=== PATIENT | male | born 1980 | race Caucasian/White ===

== ENCOUNTER 2019-01-25 09:10 | Emergency (ER) | payer SELFPAY, OTHER | END 2019-01-25 10:31 | disposition home or self-care (01) | LOC: JERFT 09:10 ==

== ENCOUNTER 2020-02-29 14:51 | Emergency (ER) | payer OTHER ==
--- NOTE | 2020-02-29 15:00 | PDOC ---
Rapid Medical Evaluation Chief Complaint: Pain Time Seen by Provider: 02/29/20 14:56 Medical Evaluation: Allergies Allergy/AdvReac Type Severity Reaction Status Date / Time No Known Allergies Allergy Verified 01/25/19 09:12 02/29/20 14:58 I performed a brief in-person evaluation of this patient. 39 y/o with left shoulder injury after lifting up his daughter 4 days ago. He complaints of anterior shoulder pain. He denies past medical history or allergies to medications. Pertinent physical exam findings: + anterior L shoulder tenderness to palpation about the biceps tendon. No crepitus. Decreased ROM secondary to pain I have ordered the following:L shoulder xr Patient to proceed to ED for further evaluation. Discharge Disposition - Diagnosis Left shoulder pain - Referrals - Patient Instructions - Post Discharge Activity
[2020-02-29 15:01] VITALS: BP 136/84; PULSE 68; TEMP 98.3; BMI 30.4
[2020-02-29] MEDS ORDERED: KETOROLAC TROMETHAMINE 30 MG/1 ML VIAL IM ONE (15:45)
--- NOTE | 2020-02-29 15:54 | PDOC ---
History of Present Illness - General Chief Complaint: Pain Stated Complaint: LT ARM PAIN Time Seen by Provider: 02/29/20 14:56 History Source: Patient Exam Limitations: Clinical Condition - History of Present Illness Initial Comments: 02/29/20 15:54 Patient with no significant past medical history present with complaint of 5-day history of pain to anterior aspect of left shoulder with increased pain over lateral deltoid with elevation of left upper arm of unknown etiology. Patient report does not know how pain started and was at home not doing any strenuous activity. Denies any heavy lifting or injury to shoulder. Denies any other symptoms. Patient has not taken anything for symptoms Occurred: reports: other (5 days) Past History - Medical History Allergies/Adverse Reactions: Allergies Allergy/AdvReac Type Severity Reaction Status Date / Time No Known Allergies Allergy Verified 02/29/20 15:00 Home Medications: Ambulatory Orders Cyclobenzaprine HCl 10 mg PO Q8H PRN #14 tablet 01/25/19 Naproxen [Naprosyn -] 500 mg PO BID #30 tablet 01/25/19 Methocarbamol [Robaxin -] 500 mg PO BID #14 tablet 02/29/20 Naproxen 500 mg PO BID PRN #20 tablet 02/29/20 COPD: No - Immunization History Immunization Up to Date: No - Psycho-Social/Smoking History Smoking History: Never smoked Have you smoked in the past 12 months: No Information on smoking cessation initiated: No - Substance Abuse Hx (Audit-C & DAST Scrn) How often the patient has a drink containing alcohol: Monthly or less Number of drinks the patient has on a typical day: 1 or 2 How often the patient has six or more drinks on one occasion: Never Score: In Men: 4 or > Positive; In Women: 3 or > Positive: 1 Screen Result (Pos requires Nsg. Audit-10AR): Negative In the last yr the pt used illegal drug/Rx for NonMed reason: No Score: Yes response is considered Positive: 0 Screen Result (Positive result requires Nsg. DAST-10): Negative Review of Systems - Review of Systems Able to Perform ROS?: Yes Is the patient limited Bengali proficient: No Constitutional: No: Chills, Fever, Malaise, Weakness HEENTM: No: Symptoms Reported, See HPI, Eye Pain, Blurred Vision, Tearing, Recent change in vision, Double Vision, Cataracts, Ear Pain, Ocular Prothesis, Ear Discharge, Nose Pain, Nose Congestion, Tinnitus, Nose Bleeding, Hearing Loss, Throat Pain, Throat Swelling, Mouth Pain, Dental Problems, Difficulty Swallowing, Mouth Swelling, Other Respiratory: No: Symptoms reported, See HPI, Cough, Orthopnea, Shortness of Breath, SOB with Exertion, SOB at Rest, Stridor, Wheezing, Productive cough, Hemoptysis, Other Cardiac (ROS): No: Symptoms Reported Musculoskeletal: Yes: Symptoms Reported, See HPI, Joint Pain (Left shoulder pain), Muscle Pain (Left shoulder pain) Integumentary: No: Symptoms Reported Neurological: No: Symptoms reported, Numbness, Paresthesia All Other Systems: Reviewed and Negative *Physical Exam - Vital Signs Last Vital Signs Temp Pulse Resp BP Pulse Ox 98.3 F 68 17 136/84 100 02/29/20 14:58 02/29/20 14:58 02/29/20 14:58 02/29/20 14:58 02/29/20 14:58 - Physical Exam 02/29/20 15:56 GENERAL: Well developed, well nourished. Awake and alert. No acute distress. PULMONARY: No evidence of respiratory distress. MUSCULOSKELETAL : Mild tenderness over left AC joint and anterior and lateral deltoid muscle of left shoulder. Negative left arm drop. No visible deformity. SKIN: Warm and dry. Normal capillary refill. No bruising, ecchymosis or deformity to skin of left shoulder or upper arm NEUROLOGICAL: Alert, awake, appropriate. No motor deficits in the lower extremities. Gait is normal without ataxia. PSYCHIATRIC: Cooperative. Good eye contact. Appropriate mood and affect. General Appearance: Yes: Nourished, Appropriately Dressed. No: Apparent Distress ED Treatment Course - Medications Given in the ED: ED Medications Discontinued Medications Generic Name Dose Route Start Last Admin Trade Name Freq PRN Reason Stop Dose Admin Ketorolac Tromethamine 30 mg 02/29/20 15:45 02/29/20 15:47 Toradol Injection - IM 02/29/20 15:46 30 mg ONCE ONE Administration Medical Decision Making - Medical Decision Making 02/29/20 15:55 Patient with no significant past medical history present with complaint of 5-day history of pain to anterior aspect of left shoulder with increased pain over lateral deltoid with elevation of left upper arm of unknown etiology. Patient report does not know how pain started and was at home not doing any strenuous activity. Denies any heavy lifting or injury to shoulder. Denies any other symptoms. Patient has not taken anything for symptoms Exam significant for mild over AC joint of left shoulder and lateral deltoid muscle of left shoulder which is worse when elevation of left upper arm against resistance. Negative left arm drop. X-ray of left shoulder shows no acute fracture or abnormality. Patient symptoms likely shoulder sprain causing spasm. Toradol 30 mg IM given for pain. Patient stable for discharge on naproxen as needed for pain and Robaxin for spasm with advised to do hot compresses with orthopedics follow-up as needed Discharge - Discharge Information Problems reviewed: Yes Clinical Impression/Diagnosis: Left shoulder pain Qualifiers: Chronicity: acute Qualified Code(s): M25.512 - Pain in left shoulder Sprain of left shoulder Qualifiers: Encounter type: initial encounter Shoulder sprain type: unspecified sprain Qualified Code(s): S43.402A - Unspecified sprain of left shoulder joint, initial encounter Condition: Stable Disposition: HOME - Admission No - Additional Discharge Information Prescriptions: Naproxen 500 mg PO BID PRN #20 tablet PRN Reason: shoulder pain Methocarbamol [Robaxin -] 500 mg PO BID #14 tablet - Follow up/Referral Referrals: Sky Vigil DO [Staff Physician] - - Patient Discharge Instructions Patient Printed Discharge Instructions: DI for Shoulder Sprain Additional Instructions: X-ray of your shoulder shows no acute fracture or dislocation. Your symptoms likely from shoulder sprain causing and spasm. Take prescribed medication as needed for pain. Apply hot compresses to shoulder as needed. Follow-up referred orthopedics if no improvement in 4 days - Post Discharge Activity
== END 2020-02-29 15:56 | disposition home or self-care (01) ==
LOC: JERFT 14:51
PROC: 3E023GC Introduction of Other Therapeutic Substance into Muscle, Percutaneous Approach (ICD-10-PCS; principal; 2020-02-29)
DX: S43.402A Unspecified sprain of left shoulder joint, initial encounter (principal); Y99.9 Unspecified external cause status
CPT/HCPCS: 73030-TC-LT-FY; 99284-25

== ENCOUNTER 2020-11-04 16:49 | Emergency (ER) | payer OTHER ==
[2020-11-04 17:40] VITALS: BP 125/87; PULSE 97; TEMP 99.7; BMI 30.4
[2020-11-04] MEDS ORDERED: ACETAMINOPHEN 325 MG TABLET (FP) PO ONE (19:39)
[2020-11-04] MEDS ORDERED: ACETAMINOPHEN 325 MG TABLET (FP) ONE (19:49)
[2020-11-04 20:56] LABS: BASO % 0.2 % (0-2.0); EOS % 0.8 % (0-4.5); HEMATOCRIT 42.9 % (35.4-49); HEMOGLOBIN 14.6 GM/dL (11.7-16.9); MCHC 34.2 g/dl (32.0-35.9); MEAN CELL VOLUME 90.8 fl (80-96); MEAN PLT VOLUME 10.4 fl (7.5-11.1); MONO % 12.9 % (3.8-10.2); NEUT % 64.1 % (42.8-82.8); PLATELET COUNT 147 K/MM3 (134-434); RBC 4.72 M/mm3 (4.00-5.60); RDW 13.5 % (11.9-15.9); WHITE BLOOD COUNT 3.3 K/mm3 (4.0-10.0)
[2020-11-04 21:12] LABS: INR 1.15 (0.83-1.09); PROTHROMBIN TIME (PATIENT) 14.1 SEC (9.7-13.0)
[2020-11-04 21:14] LABS: ACTIVATED PTT 35.9 SECONDS (25.2-36.5)
[2020-11-04 21:15] LABS: CHLORIDE 104 mmol/L (98-107); POTASSIUM 3.5 mmol/L (3.5-5.1); SODIUM 136 mmol/L (136-145)
[2020-11-04 21:17] LABS: ALBUMIN 3.9 g/dl (3.4-5.0); CALCIUM 8.8 mg/dL (8.5-10.1)
[2020-11-04 21:18] LABS: ANION GAP 6 MMOL/L (8-16); BLOOD UREA NITROGEN 9.6 mg/dL (7-18); CO2 26 mmol/L (21-32); GLUCOSE,RANDOM 128 mg/dL (74-106); LIPASE 163 U/L (73-393); MAGNESIUM 2.2 mg/dL (1.8-2.4)
[2020-11-04 21:20] LABS: SGPT/ALT 44 U/L (13-61)
[2020-11-04 21:21] LABS: CREATININE 0.8 mg/dL (0.55-1.3); SGOT/AST 40 U/L (15-37)
[2020-11-04 21:22] LABS: BILIRUBIN,TOTAL 0.3 mg/dL (0.2-1); TOT PROT 7.7 g/dl (6.4-8.2)
[2020-11-04 21:23] LABS: ALK PHOS 69 U/L (45-117)
== END 2020-11-04 22:35 | disposition home or self-care (01) ==
LOC: JER 16:49
DX: R07.9 Chest pain, unspecified (principal)
CPT/HCPCS: 36415; 71046-TC-FY; 80053; 82550; 82553; 83690; 83735; 84484; 85025; 85610; 85730; 93005; 93010; 99285-25; C9803; U0003

== ENCOUNTER 2023-06-06 11:49 | Emergency (ER) | payer SELFPAY ==
[2023-06-06 11:53] VITALS: BP 116/74; PULSE 81; RESP 20; TEMP 98.6; BMI 29.0
[2023-06-06] MEDS ORDERED: KETOROLAC TROMETHAMINE 30 MG/1 ML VIAL IM ONE (12:50)
[2023-06-06] MEDS ORDERED: ACETAMINOPHEN 500 MG TABLET (FP) PO ONE (12:50)
[2023-06-06] MEDS ORDERED: LIDOCAINE 4% PATCH TP ONE ×2 (12:51→13:02)
[2023-06-06] MEDS ORDERED: KETOROLAC TROMETHAMINE 30 MG/1 ML VIAL ONE (13:02)
[2023-06-06] MEDS ORDERED: ACETAMINOPHEN 500 MG TABLET (FP) ONE (13:02)
[2023-06-06] MEDS ORDERED: oxyCODONE HCL 5 MG TABLET PO ONE (14:18)
[2023-06-06] MEDS ORDERED: oxyCODONE HCL 5 MG TABLET ONE (14:28)
[2023-06-06] MEDS ORDERED: LIDOCAINE PATCH REMOVAL MC SCH (22:00)
== END 2023-06-06 15:55 | disposition home or self-care (01) ==
LOC: JERFT 11:49
PROC: 3E0233Z Introduction of Anti-inflammatory into Muscle, Percutaneous Approach (ICD-10-PCS; principal; 2023-06-06)
DX: M54.50 Low back pain, unspecified (principal); X50.0XXA Overexertion from strenuous movement or load, initial encounter
CPT/HCPCS: 99284-25

== ENCOUNTER 2023-06-08 14:13 | Emergency (ER) | payer SELFPAY ==
[2023-06-08 14:22] VITALS: BP 129/80; PULSE 81; RESP 19; TEMP 98.2; BMI 31.0
[2023-06-08] MEDS ORDERED: LIDOCAINE 5% TOPICAL PATCH TP ONE (16:06)
[2023-06-08] MEDS ORDERED: LIDOCAINE 4% PATCH TP ONE (16:11)
[2023-06-08] MEDS ORDERED: LIDOCAINE PATCH REMOVAL MC SCH (22:00)
== END 2023-06-08 16:21 | disposition home or self-care (01) ==
LOC: JERFT 14:13
DX: M54.42 Lumbago with sciatica, left side (principal); X50.0XXA Overexertion from strenuous movement or load, initial encounter
CPT/HCPCS: 99283-25

== ENCOUNTER 2023-11-09 17:54 | Emergency (ER) | payer OTHER ==
[2023-11-09 18:10] VITALS: BP 131/88; PULSE 93; RESP 18; TEMP 98.5; BMI 33.4
[2023-11-09] MEDS ORDERED: DEXAMETHASONE SOD PHOSPHATE 10 MG/1 ML VIAL ONE (21:01)
[2023-11-09] MEDS ORDERED: KETOROLAC TROMETHAMINE 30 MG/1 ML VIAL ONE (21:05)
[2023-11-09] MEDS: KETOROLAC TROMETHAMINE 30 MG/1 ML VIAL IM ONE (21:07)
[2023-11-09] MEDS: DEXAMETHASONE SOD PHOSPHATE 10 MG/1 ML VIAL IM ONE (21:07)
== END 2023-11-09 21:33 | disposition home or self-care (01) ==
LOC: JERFT 17:54
PROC: 3E0233Z Introduction of Anti-inflammatory into Muscle, Percutaneous Approach (ICD-10-PCS; principal; 2023-11-09)
PROC: 3E023GC Introduction of Other Therapeutic Substance into Muscle, Percutaneous Approach (ICD-10-PCS; 2023-11-09)
DX: R09.81 Nasal congestion (principal); J32.9 Chronic sinusitis, unspecified
CPT/HCPCS: 70450-TC; 70486-TC; 99284-25; J1100

== ENCOUNTER 2024-03-20 08:25 | Emergency (ER) | payer OTHER ==
[2024-03-20 08:31] VITALS: BP 154/80; PULSE 78; RESP 18; TEMP 98.2; BMI 29.5
[2024-03-20] MEDS: IBUPROFEN 400 MG TABLET (FP) PO ONE (08:52)
[2024-03-20] MEDS ORDERED: LIDOCAINE 4% PATCH TP ONE (09:04)
[2024-03-20] MEDS ORDERED: IBUPROFEN 400 MG TABLET (FP) PO ONE (09:04)
[2024-03-20] MEDS: LIDOCAINE 5% TOPICAL PATCH TP ONE (09:13)
[2024-03-20] MEDS ORDERED: LIDOCAINE PATCH REMOVAL MC ONE (22:00)
== END 2024-03-20 09:32 | disposition home or self-care (01) ==
LOC: JER 08:25
DX: M25.522 Pain in left elbow (principal); M25.512 Pain in left shoulder
CPT/HCPCS: 93005; 93010; 99283-25